=== PATIENT | female | born 1945 | race Caucasian/White ===

== ENCOUNTER 2022-12-28 07:29 | Day surgery (SDC) | payer MEDICARE, SELFPAY ==
[2022-12-26 14:37] VITALS: BMI 26.6
--- NOTE | 2022-12-27 10:40 | HO.ANESPROP2 ---
Documented by User: Mago Viera NP 12/27/22 10:42 HPI - Anesthesia Eval Consult details Narrative: 77yo F for Left Bunionectomy, Left 2nd digit Toe Amputation Medically cleared [facility] Past Medical History Medical History Arthritis Osteoporosis Hypothyroid Elevated cholesterol HTN (hypertension) Surgical History Surgical History H/O colonoscopy Hx of hysterectomy Social History Social History Patient Tobacco Use Status: Never used Tobacco Use of substances other than those prescribed or required for medical reasons: No Are you DNR?: No Advance Directives: Yes Advance Directives Information Provided: Yes Advance Directives on File: No Advance Directives Date on File: 12/28/22 Meds Allergies Allergy/AdvReac Type Severity Reaction Status Date / Time crab Allergy Anaphylaxis Verified 12/28/22 07:37 Home Medications Medication Instructions Recorded Confirmed Last Taken Type alendronate 35 mg tablet 35 mg PO QWEEK 12/26/22 12/28/22 Unknown History atorvastatin 20 mg tablet 20 mg PO DAILY 12/26/22 12/28/22 Unknown History cyclosporine 0.05 % eye drops in a 1 drp ophthalmic (eye) DAILY 12/26/22 12/28/22 Unknown History dropperette (Restasis) hydrochlorothiazide 25 mg tablet 25 mg PO DAILY 12/26/22 12/28/22 Unknown History levothyroxine 100 mcg tablet 100 mcg PO DAILY 12/26/22 12/28/22 Unknown History multivitamin 1 tab PO DAILY 12/26/22 12/28/22 Unknown History omega 4-mqz-rce-fish oil 120 1 cap PO DAILY 12/26/22 12/28/22 Unknown History mg-180 mg-500 mg capsule valacyclovir 500 mg tablet 500 mg PO BID 12/26/22 12/28/22 Unknown History verapamil 180 mg tablet,extended 90 mg PO BEDTIME 12/26/22 12/28/22 Unknown History release vitamin B complex 1 tab PO DAILY 12/26/22 12/28/22 Unknown History calcium 500 mg tablet 500 mg PO DAILY 12/28/22 12/28/22 Unknown History clobetasol 0.05 % topical gel 1 appl topical 2XW 12/28/22 12/28/22 Unknown History Exam Height,Weight and Vital Signs: Height 5 ft Weight 61.689 kg Narrative Narrative: EKG NSR per med clearance note Assessment and Plan Assessment Anesthesia Assessment: Chart Reviewed Documented by User: Jennifer Ayala MD 12/28/22 08:42 [facility] Past Medical History Medical History Arthritis Osteoporosis Hypothyroid Elevated cholesterol HTN (hypertension) Surgical History Surgical History H/O colonoscopy Hx of hysterectomy History of Problems with Anesthesia: No Social History Social History Patient Tobacco Use Status: Never used Tobacco Use of substances other than those prescribed or required for medical reasons: No Are you DNR?: No Advance Directives: Yes Advance Directives Information Provided: Yes Advance Directives on File: No Advance Directives Date on File: 12/28/22 Meds Allergies Allergy/AdvReac Type Severity Reaction Status Date / Time crab Allergy Anaphylaxis Verified 12/28/22 07:37 Home Medications Medication Instructions Recorded Confirmed Last Taken Type alendronate 35 mg tablet 35 mg PO QWEEK 12/26/22 12/28/22 Unknown History atorvastatin 20 mg tablet 20 mg PO DAILY 12/26/22 12/28/22 Unknown History cyclosporine 0.05 % eye drops in a 1 drp ophthalmic (eye) DAILY 12/26/22 12/28/22 Unknown History dropperette (Restasis) hydrochlorothiazide 25 mg tablet 25 mg PO DAILY 12/26/22 12/28/22 Unknown History levothyroxine 100 mcg tablet 100 mcg PO DAILY 12/26/22 12/28/22 Unknown History multivitamin 1 tab PO DAILY 12/26/22 12/28/22 Unknown History omega 3-wca-mpw-fish oil 120 1 cap PO DAILY 12/26/22 12/28/22 Unknown History mg-180 mg-500 mg capsule valacyclovir 500 mg tablet 500 mg PO BID 12/26/22 12/28/22 Unknown History verapamil 180 mg tablet,extended 90 mg PO BEDTIME 12/26/22 12/28/22 Unknown History release vitamin B complex 1 tab PO DAILY 12/26/22 12/28/22 Unknown History calcium 500 mg tablet 500 mg PO DAILY 12/28/22 12/28/22 Unknown History clobetasol 0.05 % topical gel 1 appl topical 2XW 12/28/22 12/28/22 Unknown History Exam Airway Mallampati Class: II TM Dist: >3cm Neck ROM: Full Loose/Missing/Broken Teeth: No Heart: RRR Lungs: CTA Assessment and Plan Assessment Anesthesia Assessment: Anesthesia Plan Discussed Final Anesthetic Review History of Problems with Anesthesia: No NPO: Yes ASA Class: II Final Preanesthetic Review: Meds/Allgs Chart Reviewed, Consent Obtained/Reviewed and Anes Risks/Benef Reviewed Patient Risk: Low Procedure Risk: Low Anesthetic Plan Anesthetic Plan: MAC: Disposition: Standard PACU
[2022-12-28 07:41] VITALS: BMI 25.7
[2022-12-28 08:12] VITALS: BP 163/82; PULSE 62; RESP 15; TEMP 36.8; O2SAT 99
[2022-12-28] MEDS: Lactated Ringers 1,000 ML 100 ML IVCONT (08:16)
[2022-12-28 10:32] VITALS: BP 133/69; PULSE 60; RESP 18; TEMP 36.4; O2SAT 97
[2022-12-28 10:47] VITALS: BP 130/66; PULSE 59; RESP 16; O2SAT 98
[2022-12-28] MEDS: oxyCODONE HCl Immed Release 5 MG TABLET PO (10:58)
[2022-12-28 11:10] VITALS: BP 138/61; PULSE 58; RESP 17; TEMP 36.3; O2SAT 99
--- NOTE | 2022-12-29 02:03 | OP_ITS ---
DATE OF SERVICE: 12/28/2022 SURGEON: Zaid Cooper DPM PREOPERATIVE DIAGNOSIS: POSTOPERATIVE DIAGNOSIS: PROCEDURE PERFORMED: ESTIMATED BLOOD LOSS: None. COMPLICATIONS: ANESTHESIA: Monitored anesthesia care (MAC) with 20 cc of 50:50 mixture 1% plain lidocaine and 0.5% plain Marcaine. ASSISTANTS: None. SPECIMENS: Pathology: Second toe and bunion material. PREOPERATIVE DIAGNOSES: 1. Painful second digit of left foot. 2. Painful bunion of the left foot. POSTOPERATIVE DIAGNOSES: 1. Painful second digit of left foot. 2. Painful bunion of the left foot. PROCEDURES PERFORMED: 1. Radical debridement amputation of the second digit of the left foot. 2. Silver bunionectomy with joint reconstruction and remodel of the left first MPJ. HEMOSTASIS: None. MATERIALS: 0 Vicryl and 3-0 Prolene. INJECTABLES: Anesthesia gave the patient Toradol as well as antibiotics. CONDITION: The patient tolerated anesthesia and procedure well. The patient was sent to recovery room in good and stable condition with vital signs stable as per Anesthesia. It must be noted that there was good reperfusion of all the digits. There were 4 digits last following the surgery. PATIENT'S INDICATIONS: This patient has been a patient of mine for sometime now, has had extreme pain with foot for large bunion deformity of the left as well as the second toe, which has extreme overlapping and extreme pain. The second toe is at risk for ulceration and causes the patient pain significantly. The patient has had pain ambulating upstairs, downstairs and in general. The patient had exhausted all conservative care. DESCRIPTION OF PROCEDURE: The patient was brought into the operating room via a gurney and placed in the operating room table in supine position. Once the adequate amounts of IV sedation were achieved, the above mentioned mixture of local anesthesia was injected into left foot. The left foot was prepped and draped in normal sterile fashion. A 15-blade was used in order to make an incision first over the second MPJ extending distally and curving around the second digit to the plantar surface. Blunt and sharp dissection were used in order to go down all the way to the capsule of the second MPJ. A neurovascular structures were identified, marked, and retracted. All venous structures were ligated with Bovie and retracted. Next, a 15 blade was used in order to further make an incision into the capsule of the second MPJ where the second digit from the metatarsophalangeal joint was removed. It must be noted at this time, copious amounts of normal sterile saline were used in order to wash the area. 3-0 Vicryl was used in order to seal up the deep layers and 3-0 Prolene for the skin edges. All skin edges came together well. The focus of attention was over the first MPJ of the left foot. 15 blade was used in order to make a curvilinear incision over the dorsomedial aspect of the first MPJ of the left foot. Blunt and sharp dissection were used to go down the capsule of the first MPJ. Neurovascular structures were identified, marked, and retracted. All venous structures were ligated with Bovie and retracted. Next, a 15-blade was used in order to make an incision into the capsule of the first MPJ where the capsule and periosteum were adequately reflected off the joint. It must be noted a sagittal saw was used then to remove bone of the medial and dorsal aspects as well as the bone rongeur to clean up and reshape the first MPJ joint. Once this was done, copious amounts of normal sterile saline were used to wash the area. There were no bone chars left. It must be noted that 3-0 Vicryl was used in order to seal up the capsule and then deep layers. No tendons were excised or incised during this procedure. Next, it must be noted that 3-0 Vicryl was used in order to finish up the deep layers and 3-0 Prolene for the skin edges. The patient then had hydrogen peroxide scrubbed of the both areas. Capsule time was checked. It must be noted then that Xeroform was placed over the incision site and fluffs, Terri, Danilo wrap and Kerlix were added over the foot. The patient was wheeled back to the recovery room and vital signs stable per Anesthesia. The patient was given all postoperative instructions and medicine. The patient was spoken to following procedure and was not in pain. Patient will ice and elevate over the weekend and see me in 4 days. The patient has a followup scheduled in my office. ANDRE Munroe/DARRIUS / [id number]
== END 2022-12-28 11:35 | disposition home or self-care (01) ==
PROVIDERS: PCP Family Medicine; Visit Provider Podiatrist
PROC: (CPT 28292; principal; 2022-12-28 09:00)
PROC: (CPT 28810; 2022-12-28 09:00)
DX: M20.42 Other hammer toe(s) (acquired), left foot (principal); M79.672 Pain in left foot; M19.90 Unspecified osteoarthritis, unspecified site; M81.0 Age-related osteoporosis without current pathological fracture; I10 Essential (primary) hypertension; E03.9 Hypothyroidism, unspecified; E78.00 Pure hypercholesterolemia, unspecified; Z79.899 Other long term (current) drug therapy
CPT/HCPCS: 28810; 28292; 88304; 88305; 88311; J0131; J0665; J0690; J1100; J1885; J2250; J2704; J3010